=== PATIENT | male | born 2000 | race Caucasian/White ===

== ENCOUNTER 2019-07-21 15:08 | Emergency (ER) | payer MEDICAID ==
--- NOTE | 2019-07-21 15:27 | ED Physician Documentation ---
PD HPI HEENT - Stated complaint Stated Complaint: TONGUE NUMBNESS/PX,SORE THROAT - Chief complaint Chief Complaint: Heent - History obtained from History obtained from: Patient - History of Present Illness Timing - onset: Yesterday (Onset yesterday of sore throat with some sores around the gum as well and difficulty swallowing because of discomfort. He denies any feeling of blockage of the area. He has not had any trouble breathing. He denies any rash or sores or itchiness on the skin. He has not had any fever or chills. He does have some feeling of adenopathy. No cough. He has had some runny nose. He denies any unusual foods or new medications.) Timing - duration: Days (1-2) Timing - details: Abrupt onset Location: Throat, Mouth Worsens: Swalllowing Associated symptoms: Congestion, Swollen nodes (left neck). No: Fever, Facial swelling, Headache, Cough Similar symptoms before: Has not had sx before Recently seen: Not recently seen Review of Systems Constitutional: denies: Fever, Chills Nose: denies: Rhinorrhea / runny nose, Congestion Throat: reports: Oral lesions / sores, Sore throat Respiratory: denies: Cough PD PAST MEDICAL HISTORY - Past Medical History Cardiovascular: None Respiratory: None Neuro: None Endocrine/Autoimmune: None - Present Medications Home Medications: Ambulatory Orders Medication Instructions Recorded Confirmed Hydrocodone/Acetaminophen [[place] 1 each PO Q6H PRN #15 tablet 07/21/19 5-325 Tablet] Lidocaine Viscous 2% [Xylocaine 5 ml PO Q4H PRN #100 ml 07/21/19 Viscous 2%] dexAMETHasone [Decadron] 4 mg PO DAILY #5 tablet 07/21/19 - Allergies Allergies/Adverse Reactions: Allergies Allergy/AdvReac Type Severity Reaction Status Date / Time No Known Drug Allergies Allergy Verified 07/21/19 15:17 PD ED PE NORMAL - Vitals Vital signs reviewed: Yes - General General: Alert and oriented X 3, No acute distress, Well developed/nourished - HEENT HEENT: Ears normal, Moist mucous membranes. No: Pharynx benign (discrete small ulcerative lesions on gum, inner lip, soft palatte and back of throat. ) - Neck Neck: Supple, no meningeal sign, No adenopathy - Cardiac Cardiac: RRR, No murmur - Respiratory Respiratory: Clear bilaterally - Abdomen Abdomen: Soft, Non tender - Derm Derm: Normal color, Warm and dry, Other (some small red spots with tenderness in palms. No rash on trunk. ) - Neuro Neuro: Alert and oriented X 3, No motor deficit, Normal speech Results - Vitals Vitals: Vital Signs - 24 hr 07/21/19 07/21/19 15:13 16:26 Temperature 36.2 C L 36.4 C L Heart Rate 86 80 Respiratory 18 17 Rate Blood Pressure 137/78 H 134/84 H O2 Saturation 99 100 Oxygen O2 Source Room air - Labs Labs: Laboratory Tests 07/21/19 15:41 Group A Strep Rapid Negative PD MEDICAL DECISION MAKING - ED course Complexity details: considered differential (Does not seem strep. More likely viral stomatitis, and with some palm red spots, most likely hand/foot/mouth dz. ), d/w patient Departure - Departure Disposition: 01 Home, Self Care Clinical Impression: Stomatitis, viral, Hand, foot and mouth disease Condition: Stable Record reviewed to determine appropriate education?: Yes Instructions: ED Hand Foot Mouth Disease Ch Prescriptions: dexAMETHasone [Decadron] 4 mg PO DAILY #5 tablet Hydrocodone/Acetaminophen [[place] 5-325 Tablet] 1 each PO Q6H PRN #15 tablet PRN Reason: Pain Lidocaine Viscous 2% [Xylocaine Viscous 2%] 5 ml PO Q4H PRN #100 ml PRN Reason: Pain Comments: This looks likely to be a viral infection with sores in the mouth. Your strep test is negative. Use Tylenol or ibuprofen if needed for fevers and mild pains. Add hydrocodone if needed for worse pain. You can also use lidocaine mixed with some Benadryl liquid to help with some of the mouth sores and pain. Decadron steroid daily for 5 days to decrease inflammation. Forms: Activity restrictions Discharge Date/Time: 07/21/19 16:38
[2019-07-21] MEDS ORDERED: DEXAMETHASONE 10 MG/ML VIAL PO STA (15:41)
[2019-07-21] MEDS ORDERED: HYDROcod/ACETAM 5/325 MG TABLET PO STA (15:41)
[2019-07-21] MEDS ORDERED: LIDOCAINE VISCOUS 2% 15 ML UDC MM STA (15:41)
[2019-07-21] MEDS ORDERED: diphenhydrAMINE ELIXIR 25 MG/10 ML UDC PO STA (15:41)
[2019-07-21] MEDS ORDERED: CHERRY SYRUP 10 ML UDC PO ONE (15:41)
[2019-07-21 15:54] LABS: RAPID STREP SCREEN Negative (Negative)
[2019-07-21 16:27] VITALS: BP 134/84
== END 2019-07-21 16:38 | disposition home or self-care (01) ==
LOC: ED 15:08
DX: B08.4 Enteroviral vesicular stomatitis with exanthem (principal)
CPT/HCPCS: 87070; 87430; 99283; 99284; A9270

== ENCOUNTER 2022-04-28 18:35 | Emergency (ER) | payer MEDICAID ==
--- NOTE | 2022-04-28 20:03 | XRAY Report ---
PROCEDURE: Chest 1 View X-Ray INDICATIONS: ITS.REASON: CP TECHNIQUE: One view of the chest was acquired. COMPARISON: None FINDINGS: Surgical changes and devices: None. Lungs and pleura: No pleural effusions or pneumothorax. Lungs are clear. Mediastinum: Mediastinal contours appear normal. Heart size is normal. Bones and chest wall: No suspicious bony lesions. Overlying soft tissues appear unremarkable. IMPRESSION: Normal for age, source of chest pain is not seen. Reviewed by: Dionicio Tang MD on 04/28/2022 8:01 PM PDT Approved by: Dionicio Tang MD on 04/28/2022 8:01 PM PDT Station ID: [id number]
--- NOTE | 2022-04-28 20:34 | ED Physician Documentation ---
PD HPI CHEST PAIN - Stated complaint Stated Complaint: CHEST PX - Chief complaint Chief Complaint: Cardiac - History obtained from History obtained from: Patient - Additional information Additional information: Patient is a 21-year-old male with no significant past medical history presenting for evaluation of intermittent episodes of chest pain that of been ongoing for the last year. He states that they are very random and he can go days to weeks without an episode but then will have 1. Today he had 3 episodes that each lasted a minute or 2.It is over the left side of his chest. Does not radiate elsewhere. Nothing makes it better or worse when he has the episodes. Reports feeling short of breath when he has the pain but then his symptoms quickly improved without any intervention. He denies any known triggers such as activity. Denies history of hypertension, diabetes or dyslipidemia. No family history of early coronary artery disease. Denies drug use. Of note, patient is here in the emergency department with 3 other family members who are being evaluated for URI symptoms. Patient denies recent illness with fever, cough, congestion. Review of Systems Constitutional: denies: Fever Nose: denies: Congestion Cardiac: reports: Chest pain / pressure Respiratory: denies: Dyspnea, Cough GI: denies: Abdominal Pain, Vomiting : denies: Dysuria Skin: denies: Rash Musculoskeletal: denies: Back pain, Extremity swelling Neurologic: denies: Headache PD PAST MEDICAL HISTORY - Past Medical History Past Medical History: No Cardiovascular: None Respiratory: None Neuro: None Endocrine/Autoimmune: None - Past Surgical History Past Surgical History: No - Present Medications Home Medications: Ambulatory Orders Medication Instructions Recorded Confirmed Hydrocodone/Acetaminophen [[place] 1 each PO Q6H PRN #15 tablet 07/21/19 5-325 Tablet] Lidocaine Viscous 2% [Xylocaine 5 ml PO Q4H PRN #100 ml 07/21/19 Viscous 2%] dexAMETHasone [Decadron] 4 mg PO DAILY #5 tablet 07/21/19 - Allergies Allergies/Adverse Reactions: Allergies Allergy/AdvReac Type Severity Reaction Status Date / Time No Known Drug Allergies Allergy Verified 04/28/22 18:52 - Social History Does the pt smoke?: No Smoking Status: Never smoker Does the pt drink ETOH?: Yes Does the pt have substance abuse?: No - Immunizations Immunizations: TDAP >10years/unknown PD ED PE NORMAL - General General: Alert and oriented X 3, No acute distress, Well developed/nourished - HEENT HEENT: Atraumatic, Moist mucous membranes - Neck Neck: Supple, no meningeal sign - Cardiac Cardiac: RRR, No murmur, Strong equal pulses, Other (Left-sided chest wall tenderness with no bruising, deformities, crepitus) - Respiratory Respiratory: No respiratory distress, Clear bilaterally - Abdomen Abdomen: Normal bowel sounds, Soft, Non tender, Non distended - Derm Derm: Warm and dry - Extremities Extremities: No edema - Neuro Neuro: Normal speech Results - Vitals Vitals: Vital Signs - 24 hr 04/28/22 04/28/22 18:46 20:53 Temperature 36 C L Heart Rate 86 93 Respiratory 16 18 Rate Blood Pressure 148/83 H 132/78 H O2 Saturation 99 98 Oxygen O2 Source Room air - EKG (time done) 1851 Rate: Rate (enter#) (86) Rhythm: NSR Intervals: No: Prolonged QT Ischemia: No: ST elevation c/w ischemia Compare to prior EKG: Old EKG unavailable PD MEDICAL DECISION MAKING - ED course Complexity details: reviewed results, re-evaluated patient, d/w patient ED course: Patient is a 21-year-old male presenting for evaluation of chest pain that has been intermittent for the last year with 3 episodes today. Episodes are 1 to 2 minutes without any radiation. No known exacerbating or alleviating factors. Patient has no risk factors for ACS. PERC negative. EKG is a normal sinus rhythm and chest x-ray is unremarkable. Patient has been symptom-free here.His symptoms seem very atypical for condition such as ACS or dissection. No recent URI symptoms to suggest myocarditis or pericarditis. Patient counseled on need for close follow-up with his primary care doctor as well as concerning symptoms to return for. Departure - Departure Disposition: 01 Home, Self Care Clinical Impression: Chest pain Condition: Stable Instructions: ED Chest Pain Atypical Unkn Cause Comments: You were evaluated For chest pain. At this time it is unclear as to what is causing your pain. Your EKG shows a normal rhythm. Your chest x-ray is also clear. I would encourage close follow-up with your primary care doctor. If your symptoms worsen in any way or become more intense then please reconsider coming back to the emergency department for another evaluation. Discharge Date/Time: 04/28/22 20:55
[2022-04-28 20:54] VITALS: BP 132/78
== END 2022-04-28 20:55 | disposition home or self-care (01) ==
LOC: ED 18:35
DX: R07.9 Chest pain, unspecified (principal)
CPT/HCPCS: 93005; 99282; 99283

== ENCOUNTER 2022-12-21 15:09 | Emergency (ER) | payer MEDICAID ==
[2022-12-21 15:20] VITALS: BP 133/65
[2022-12-21] MEDS ORDERED: PENICILLIN VK 250 MG TABLET PO STA (15:27)
[2022-12-21] MEDS ORDERED: HYDROcod/ACETAM 5/325 MG TABLET PO STA (15:27)
--- NOTE | 2022-12-21 15:30 | ED Physician Documentation ---
History of Present Illness - Stated complaint Stated Complaint: MOUTH PX - Chief complaint Chief Complaint: Heent - History obtained from History obtained from: Patient - History of Present Illness Timing: How many days ago (several days) Pain level max: 8 Pain level now: 8 - Additonal information Additional information: Patient is a 22-year-old male who presents to the emergency department with several days of bilateral upper "wisdom tooth" pain. He states that they feel like they are cracked, worse with eating and drinking. Causing headaches. No fevers. He tried calling [facility] but they had no appointments. Has been taking Motrin without relief. Review of Systems Constitutional: denies: Fever, Chills GI: denies: Nausea, Vomiting, Diarrhea Skin: denies: Rash Musculoskeletal: denies: Neck pain, Back pain Neurologic: denies: Headache PD PAST MEDICAL HISTORY - Past Medical History Cardiovascular: None Respiratory: None Neuro: None Endocrine/Autoimmune: None - Past Surgical History Past Surgical History: No - Present Medications Home Medications: Ambulatory Orders Medication Instructions Recorded Confirmed Hydrocodone/Acetaminophen [[place] 1 each PO Q6H PRN #15 tablet 07/21/19 5-325 Tablet] Lidocaine Viscous 2% [Xylocaine 5 ml PO Q4H PRN #100 ml 07/21/19 Viscous 2%] dexAMETHasone [Decadron] 4 mg PO DAILY #5 tablet 07/21/19 HYDROcod/ACETAM 5/325 [[place] 5/325] 1 - 2 ea PO Q6H PRN #14 tablet 12/21/22 Penicillin V Potassium 500 mg PO Q6HR #40 tablet 12/21/22 - Allergies Allergies/Adverse Reactions: Allergies Allergy/AdvReac Type Severity Reaction Status Date / Time No Known Drug Allergies Allergy Verified 12/21/22 15:19 - Social History Does the pt smoke?: No Smoking Status: Never smoker Does the pt drink ETOH?: Yes Does the pt have substance abuse?: No - Immunizations Immunizations: TDAP >10years/unknown PD ED PE NORMAL - Vitals Vital signs reviewed: Yes - General General: Alert and oriented X 3, No acute distress - HEENT HEENT: PERRL, Moist mucous membranes, Other (B upper wisdom teeth appear to be at an angle and cutting into the gumline. no abscess, no drainage. no facial cellulitis. normal phonation, no trismus) - Neck Neck: Supple, no meningeal sign - Cardiac Cardiac: RRR, No murmur, Strong equal pulses - Respiratory Respiratory: No respiratory distress, Clear bilaterally - Derm Derm: Warm and dry - Neuro Neuro: Alert and oriented X 3 - Psych Psych: Normal mood, Normal affect Results - Vitals Vitals: Vital Signs - 24 hr 12/21/22 15:17 Temperature 36.0 C L Heart Rate 76 Respiratory 16 Rate Blood Pressure 133/65 H O2 Saturation 99 Oxygen O2 Source Room air PD Medical Decision Making - ED course Complexity details: reviewed results, re-evaluated patient, considered differential, d/w patient ED course: Patient with dental pain, appears to be secondary to wisdom teeth that are growing in crooked and pushing on the other teeth. We will prescribe antibiotics as there do appear to be cracks in the wisdom teeth and pain medication. Patient informed that he will need to follow-up closely with an oral surgeon to talk about removal of the wisdom teeth. Information will be given. Patient is well-appearing, nontoxic. Afebrile. No abscess. Patient counseled regarding signs and symptoms for which I believe and urgent re- evaluation would be necessary. Patient with good understanding of and agreement to plan and is comfortable going home at this time This document was made in part using voice recognition software. While efforts are made to proofread this document, sound alike and grammatical errors may occur. Departure - Departure Disposition: 01 Home, Self Care Clinical Impression: Pain, dental Condition: Good Instructions: ED Tooth Pain Follow-Up: Wesly Malagon DDS [Provider Admit Priv/Credential] - Joe Haney DMD [Physician No Access] - Jim Polo DMD [Physician No Access] - Prescriptions: Penicillin V Potassium 500 mg PO Q6HR #40 tablet HYDROcod/ACETAM 5/325 [[place] 5/325] 1 - 2 ea PO Q6H PRN #14 tablet PRN Reason: Pain Comments: [facility] [place]. Please take all antibiotics until gone. Please follow-up with an oral surgeon for further care and to discuss removal of your wisdom teeth. I have listed several oral surgeons in this paperwork. I am prescribing a short course of narcotic pain medication for you. These are potentially dangerous and addictive medications that should be used carefully. These medications may constipate you. Take an xjzl-ear-zauxnje stool softener (docusate) twice daily with plenty of water while taking these medications. If you go 24 hours without a bowel movement, take eaiq-wpy-orkcmlu miralax, per package instructions. Do not drink or drive while taking these medications. If you received narcotic or sedating medications while in the emergency department, do not drive for 24 hours. Store this medication in a safe, secure place and out of reach of children. It is a violation of federal law to give or sell this medication to another person or to use in a manner other than prescribed. The ED will not refill narcotic prescriptions, including prescriptions lost or stolen. To dispose of unwanted medications: 1. [facility] at [address] in [place] has a medication drop box. They accept prescription medications (in pill form) Saturday through Saturday 9:00 a.m. to 5:00 p.m. 2. The [facility] [employer] Department accepts prescription medications (in pill form only) for disposal year round. Call for more information. 3. Contact the [facility] for the next [facility] sponsored prescription drug collection event. , [phone], or [phone];
== END 2022-12-21 15:48 | disposition home or self-care (01) ==
LOC: ED 15:09
DX: K08.89 Other specified disorders of teeth and supporting structures (principal)
CPT/HCPCS: 99282; 99283; A9270

== ENCOUNTER 2023-03-27 16:07 | Emergency (ER) | payer OTHER, MEDICAID ==
--- NOTE | 2023-03-27 17:00 | XRAY Report ---
PROCEDURE: Wrist 4 View LT INDICATIONS: Trauma TECHNIQUE: 3 views of the wrist were acquired. COMPARISON: None. FINDINGS: Bones: No fractures or dislocations. No suspicious bony lesions. Soft tissues: No suspicious soft tissue calcifications or masses. No radiopaque foreign body. IMPRESSION: No acute bony abnormality. If there is anatomic snuff box tenderness, consider wrist immobilization a nd repeat radiographs in 10-14 days or cross-sectional imaging now. If pain persists with conservativ e management, consider repeat radiographs in 10-14 days or cross-sectional imaging. Reviewed by: Carlos Ruiz on 03/27/2023 4:59 PM PDT Approved by: Carlos Ruiz on 03/27/2023 4:59 PM PDT Station ID: [id number]
[2023-03-27] MEDS ORDERED: KETOROLAC 30 MG/ML VIAL IM STA (17:49)
--- NOTE | 2023-03-27 18:00 | ED Physician Documentation ---
History of Present Illness - Stated complaint Stated Complaint: LT WRIST INJ - Chief complaint Chief Complaint: Trauma Ext - Additonal information Additional information: 22-year-old male here for acute left wrist pain sustained when a large box fell on his wrist at work. He ended up having a similar incident occur yesterday. Now he has pain over the carpal bones snuffbox region dorsal aspect. Patient is right-hand dominant. No open sores or lesions. This is a work-related injury. Review of Systems Musculoskeletal: reports: Joint pain PD PAST MEDICAL HISTORY - Past Medical History Past Medical History: No Cardiovascular: None Respiratory: None Neuro: None Endocrine/Autoimmune: None - Past Surgical History Past Surgical History: No - Present Medications Home Medications: Ambulatory Orders Medication Instructions Recorded Confirmed HYDROcod/ACETAM 5/325 [[place] 5/325] 1 tablet PO BID PRN #10 tablet 03/27/23 - Allergies Allergies/Adverse Reactions: Allergies Allergy/AdvReac Type Severity Reaction Status Date / Time No Known Drug Allergies Allergy Verified 03/27/23 16:36 - Social History Does the pt smoke?: No Smoking Status: Never smoker Does the pt drink ETOH?: Yes Does the pt have substance abuse?: No - Immunizations Immunizations: TDAP >10years/unknown PD ED PE EXPANDED - Extremities Extremities: Left wrist (Pain over the carpal bones specifically over the anatomic snuffbox. Neurovascularly intact otherwise. No swelling or deformity. 2+ radial pulse.) Results - Vitals Vitals: Vital Signs - 24 hr 03/27/23 16:36 Temperature 36.7 C Heart Rate 100 Respiratory 16 Rate Blood Pressure 157/81 H O2 Saturation 97 Oxygen O2 Source Room air - Rads (name of study) left wrist xr Relevant Findings:: Final report received (No acute bony abnormality.) PD Medical Decision Making - ED course Complexity details: reviewed results, d/w patient ED course: 22-year-old male here for evaluation of acute left wrist injury sustained when a large box fell on the wrist 2 days in a row while at work. He does work at [employer]. There is some mild erythema but no ecchymosis swelling or deformity of the wrist. An x-ray is interpreted by the radiologist showed no acute fracture. However on exam he had significant tenderness over the scaphoid/snuffbox region. Given this and the difficulty of finding occult fracture initially with x-ray imaging he was placed in a fiberglass thumb spica splint. He is to follow closely with his [employer] preferred provider. He is recommended Tylenol and ibuprofen for discomfort. For more severe pain limited prescription of [place] was sent to the [facility] in [place]. Advised that he needs repeat imaging in 1 week's time. If pain not markedly improved at that time he may benefit from referral to orthopedics. I am prescribing a short course of short-acting opioid pain medication for this patient. 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 I have discussed that the opioids are for short term therapy only, and will not be refilled from the ED. Departure - Departure Disposition: 01 Home, Self Care Clinical Impression: Contusion of left wrist, initial encounter, Work related injury Condition: Stable Record reviewed to determine appropriate education?: Yes Instructions: ED Splint Care Fiberglass Prescriptions: HYDROcod/ACETAM 5/325 [[place] 5/325] 1 tablet PO BID PRN #10 tablet PRN Reason: Pain Comments: The x-ray of your wrist does not show an obvious fracture or broken bone. H owever you have enough pain over the region of the hand called the snuffbox or scaphoid bone that it warrants being immobilized and splinted. It is important that you follow-up with your [employer] preferred provider within the next week. Your hand should be reimaged at that time. If you continue to have significant tenderness you may need to be referred to orthopedics for follow-up. In general you can take Tylenol 500 mg 3 times a day or alternate with ibuprofen 600 mg taken with food 3 times a day for discomfort. For more severe pain I have sent a limited amount of hydrocodone or [place] to the [facility] in [place]. You are cleared to return to work as long as they can limit any activity that would require the use of the left hand. 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 Your splint cannot get wet. If it gets wet return to the ER to have it replaced. I recommend showering with a bag over your hand. I am prescribing a short course of narcotic pain medication for you. These are potentially dangerous and addictive medications that should be used carefully. These medications may constipate you. Take an fumi-zfc-xrjvqxr stool softener (docusate) twice daily with plenty of water while taking these medications. If you go 24 hours without a bowel movement, take jjyl-fxe-icrssov miralax, per package instructions. Do not drink or drive while taking these medications. If you received narcotic or sedating medications while in the emergency department, do not drive for 24 hours. Store this medication in a safe, secure place and out of reach of children. It is a violation of federal law to give or sell this medication to another person or to use in a manner other than prescribed. The ED will not refill narcotic prescriptions, including prescriptions lost or stolen. To dispose of unwanted medications: 1. [facility] [address] in [place] has a medication drop box. They accept prescription medications (in pill form) Saturday through Saturday 9:00 a.m. to 5:00 p.m. 2. The [facility] Department accepts prescription medications (in pill form only) for disposal year round. Call for more information. 3. Contact the [facility] for the next [facility] sponsored prescription drug collection event. , [phone], or [phone]; Note that many narcotic pain relievers also contain Tylenol/acetaminophen. Please ensure that your total dose of acetaminophen from all sources does not exceed 3 g (3000 mg) per day.
[2023-03-27 18:26] VITALS: BP 153/85; O2SAT 99
== END 2023-03-27 18:22 | disposition home or self-care (01) ==
LOC: ED 16:07
DX: S60.212A Contusion of left wrist, initial encounter (principal); W20.8XXA Other cause of strike by thrown, projected or falling object, initial encounter; Y99.0 Civilian activity done for income or pay
CPT/HCPCS: 96372; 99283

== ENCOUNTER 2023-04-26 09:30 | Emergency (ER) | payer MEDICAID, OTHER ==
[2023-04-26 10:09] VITALS: BP 140/88; O2SAT 99
--- NOTE | 2023-04-26 10:17 | ED Physician Documentation ---
PD HPI WOUND RECHECK - Stated complaint Stated Complaint: POST LT ARM SPRAIN CHECK - Chief complaint Chief Complaint: General - Histroy obtained from History obtained from: Patient - History of Present Illness Location: Left Uppper Extremity (wrist sprain about 3 weeks ago and was given splint and directed light/imited use for couple weeks. He states was diminished work and wrist feeling normal. His work wants note saying he can resume normal activity.) Timing - onset: How many weeks ago (3) Recently seen: Emergency Dept (seen 04/04/23 for wrist sprain eval. He states wrist use is feeling back to normal at this time wand wishes to resume usual work.) Review of Systems Skin: denies: Rash, Lesions Neurologic: denies: Focal weakness, Numbness PD PAST MEDICAL HISTORY - Past Medical History Cardiovascular: None Respiratory: None Neuro: None Endocrine/Autoimmune: None - Past Surgical History Past Surgical History: No - Present Medications Home Medications: Ambulatory Orders Medication Instructions Recorded Confirmed No Known Home Medications 04/26/23 04/26/23 - Allergies Allergies/Adverse Reactions: Allergies Allergy/AdvReac Type Severity Reaction Status Date / Time No Known Drug Allergies Allergy Verified 04/04/23 17:01 - Social History Does the pt smoke?: No Smoking Status: Never smoker Does the pt drink ETOH?: Yes Does the pt have substance abuse?: No - Immunizations Immunizations: TDAP >10years/unknown PD ED PE NORMAL - Vitals Vital signs reviewed: Yes - General General: Alert and oriented X 3, No acute distress, Well developed/nourished - Derm Derm: Normal color, Warm and dry - Extremities Extremities: Other (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 ) - Neuro Neuro: No motor deficit, No sensory deficit Results - Vitals Vitals: Vital Signs - 24 hr 04/26/23 10:01 Temperature 36.5 C Heart Rate 98 Respiratory 16 Rate Blood Pressure 140/88 H O2 Saturation 99 Oxygen O2 Source Room air PD Medical Decision Making - ED course Complexity details: reviewed old records (prior ED note with the sprain diagnosis. ), considered differential (he feels wrist is back to normal use and wishes work note to resume normal activity. ), d/w patient Departure - Departure Disposition: 01 Home, Self Care Clinical Impression: Follow-up exam after treatment, Left wrist sprain Condition: Stable Record reviewed to determine appropriate education?: Yes Comments: It is okay to resume normal work. If you do find some pains with use, you can do some ibuprofen or naproxen twice daily. Use the wrist splint at times if needed to protect the wrist if mild pains. Follow-up if needed. Forms: PCP List, Activity restrictions Discharge Date/Time: 04/26/23 10:42
== END 2023-04-26 10:42 | disposition home or self-care (01) ==
LOC: ED 09:30
DX: S63.502D Unspecified sprain of left wrist, subsequent encounter (principal); X58.XXXD Exposure to other specified factors, subsequent encounter
CPT/HCPCS: 99281; 99282

== ENCOUNTER 2024-02-15 14:27 | Emergency (ER) | payer OTHER, MEDICAID ==
[2024-02-15 15:08] LABS: BASOPHILS % (AUTO) 0.3 %; EOSINOPHILS # (AUTO) 0.2 10^3/uL (0.0-0.7); EOSINOPHILS % (AUTO) 1.7 %; HCT - HEMATOCRIT 42.1 % (42.0-52.0); LYMPHOCYTES # (AUTO) 2.9 10^3/uL (1.5-3.5); LYMPHOCYTES % (AUTO) 32.5 %; MEAN CORPUSCULAR HEMOGLOBIN 27.7 pg (27.0-31.0); MEAN CORPUSCULAR HGB CONC 33.3 g/dL (32.0-36.0); MEAN CORPUSCULAR VOLUME 83.4 fL (80.0-94.0); MEAN PLATELET VOLUME 10.1 fL (7.4-11.4); MONOCYTES # (AUTO) 0.8 10^3/uL (0.0-1.0); MONOCYTES % (AUTO) 8.5 %; NEUTROPHILS % (AUTO) 56.8 %; PLT - PLATELET COUNT 217 10^3/uL (130-450); RED BLOOD COUNT 5.05 10^6/uL (4.70-6.10); RED CELL DISTRIBUTION WIDTH 12.5 % (12.0-15.0); WHITE BLOOD COUNT 8.9 x10^3/uL (4.8-10.8)
[2024-02-15 15:23] LABS: ALBUMIN 4.7 g/dL (3.2-5.5); ALBUMIN/GLOBULIN RATIO 2.1 (1.0-2.2); ALKALINE PHOSPHATASE 55 IU/L (42-121); ALT ALANINE AMINOTRANSFERASE 26 IU/L (10-60); AST ASPARTATE AMINOTRANSFERASE 19 IU/L (10-42); BILIRUBIN,TOTAL 0.4 mg/dL (0.2-1.0); BUN - BLOOD UREA NITROGEN 18 mg/dL (6-20); CARBON DIOXIDE - CO2 28 mmol/L (21-32); CHLORIDE 104 mmol/L (101-111); CREATININE 0.8 mg/dL (0.6-1.3); GFR - MDRD 119 (>89); GLUCOSE 95 mg/dL (74-104); LIPASE 42 U/L (11-82); POTASSIUM 4.1 mmol/L (3.5-4.5); SODIUM 137 mmol/L (135-145); TOTAL PROTEIN 6.9 g/dL (6.4-8.9)
[2024-02-15 15:27] LABS: TROPONIN I HIGH SENSITIVITY < 2.3 ng/L (2.3-19.7)
--- NOTE | 2024-02-15 15:27 | ED Physician Documentation ---
PD HPI CHEST PAIN - Stated complaint Stated Complaint: CHEST PX,SOA - Chief complaint Chief Complaint: Cardiac - History obtained from History obtained from: Patient - Additional information Additional information: He has a history of asthma in childhood heart murmur but no other heart issues and does not run in the family. He had 3 days of fairly constant left-sided chest pain that is worse with motion of the left arm and sometimes with deep breathing. He does not feel like he is wheezing. No pedal edema or calf pain. He also has an ancillary complaint complains of 8 years of ongoing knee pain that with popping and clicking. PD PAST MEDICAL HISTORY - Past Medical History Cardiovascular: None Respiratory: None Neuro: None Endocrine/Autoimmune: None - Past Surgical History Past Surgical History: No - Present Medications Home Medications: Ambulatory Orders Medication Instructions Recorded Confirmed No Known Home Medications 04/26/23 02/15/24 - Allergies Allergies/Adverse Reactions: Allergies Allergy/AdvReac Type Severity Reaction Status Date / Time No Known Drug Allergies Allergy Verified 02/15/24 14:48 - Social History Does the pt smoke?: No Smoking Status: Never smoker Does the pt drink ETOH?: Yes Does the pt have substance abuse?: No - Immunizations Immunizations: TDAP >10years/unknown PD ED PE NORMAL - Vitals Vital signs reviewed: Yes - General General: Alert and oriented X 3, No acute distress - Neck Neck: Supple, no meningeal sign, No bony TTP - Cardiac Cardiac: RRR, No murmur - Respiratory Respiratory: No respiratory distress, Clear bilaterally, Other (Chest pain is reproducible with palpation of the upper left chest wall) - Abdomen Abdomen: Non tender - Extremities Extremities: No edema, No calf tenderness / cord, Other (Left knee is visibly normal without tenderness.) Results - Vitals Vitals: Vital Signs - 24 hr 02/15/24 02/15/24 14:43 15:41 Temperature 36.3 C L 36.5 C Heart Rate 87 88 Respiratory 18 18 Rate Blood Pressure 133/74 H 128/72 O2 Saturation 99 100 Oxygen O2 Source Room air - EKG (time done) 1451 EKG releavant findings:: EKG personally interpreted by author of this note. Relevant findings are: Rate: Rate (enter#) (69) Rhythm: NSR [place]: Normal Intervals: Normal [place] QRS: Normal Ischemia: Normal ST segments - Labs Labs: Laboratory Tests 02/15/24 02/15/24 15:01 15:01 WBC 8.9 RBC 5.05 Hgb 14.0 Hct 42.1 MCV 83.4 MCH 27.7 MCHC 33.3 RDW 12.5 Plt Count 217 MPV 10.1 Neut # (Auto) 5.0 Lymph # (Auto) 2.9 [place] # (Auto) 0.8 Eos # (Auto) 0.2 Baso # (Auto) 0.0 Absolute Nucleated RBC 0.00 Nucleated RBC % 0.0 Sodium 137 Potassium 4.1 Chloride 104 Carbon Dioxide 28 Anion Gap 5.0 L BUN 18 Creatinine 0.8 Estimated GFR (MDRD) 119 Glucose 95 Calcium 10.0 Total Bilirubin 0.4 AST 19 ALT 26 Alkaline Phosphatase 55 Troponin I High Sens < 2.3 L Total Protein 6.9 Albumin 4.7 Globulin 2.2 Albumin/Globulin Ratio 2.1 Lipase 42 - Rads (name of study) Single view chest x-ray and left knee x-ray were negative Relevant Findings:: Final report received, EMP independent interpretation of test PD Medical Decision Making - ED course Complexity details: reviewed results (CBC, CMP, troponin normal/negative) ED course: Heart score 0, PERC negative I considered aortic dissection in this patient. The patient has a much more likely alternative diagnosis. The patient has equal radial and pedal pulses and has no neurologic symptoms. The chest pain is almost clearly musculoskeletal on exam. He also was worried about his knee but that is a chronic issue. Departure - Departure Disposition: 01 Home, Self Care Clinical Impression: Chest wall pain, Chronic pain of left knee Condition: Good Record reviewed to determine appropriate education?: Yes Instructions: ED Strain Chest Wall Comments: The x-rays of your chest and knee were normal. There is no evidence of active heart issue and it seems like the pain is from the muscles of your chest. Ibuprofen as needed per package instructions for aches and pains and call your doctor to arrange a follow-up appointment, make the next available appointment. In the interim, return anytime if worse or if new symptoms develop. Forms: PCP List Discharge Date/Time: 02/15/24 15:45
--- NOTE | 2024-02-15 15:30 | XRAY Report ---
PROCEDURE: Knee 4+V LT INDICATIONS: Trauma TECHNIQUE: 4 views of the knee(s) were acquired. COMPARISON: None. FINDINGS: Bones: No fractures or dislocations. No suspicious bony lesions. Soft tissues: No knee joint effusion. No suspicious soft tissue calcifications or masses. IMPRESSION: No acute plain film abnormality is seen. If it would be helpful for clinical management decision making, please consider a dedicated, schedule d knee MRI for further evaluation (assuming that there is no contraindication). Reviewed by: Los Crowder MD on 02/15/2024 2:29 PM ITA Approved by: Los Crowder MD on 02/15/2024 2:29 PM ITA Station ID: [id number]
--- NOTE | 2024-02-15 15:30 | XRAY Report ---
PROCEDURE: Chest 1V INDICATIONS: Chest pain TECHNIQUE: One view of the chest was acquired. COMPARISON: 04/28/2022 FINDINGS: Surgical changes and devices: None. Lungs and pleura: An incomplete inspiratory result is noted, with low lung volumes and crowding of t he vascular markings. No focal infiltrates are seen. No large pneumothorax or large pleural effusion can be seen. Mediastinum: Mediastinal contours appear normal. Heart size is normal. Bones and chest wall: No suspicious bony lesions. Overlying soft tissues appear unremarkable. IMPRESSION: Limited portable chest examination, without an acute abnormality identified. Reviewed by: Los Crowder MD on 02/15/2024 2:28 PM [email or web address] Approved by: Los Crowder MD on 02/15/2024 2:28 PM ITA Station ID: [id number]
[2024-02-15 15:58] VITALS: BP 128/72; O2SAT 100
== END 2024-02-15 15:45 | disposition home or self-care (01) ==
LOC: ED 14:27
DX: R07.89 Other chest pain (principal); G89.29 Other chronic pain; M25.562 Pain in left knee
CPT/HCPCS: 36415; 80053; 83690; 84484; 85025; 93005; 99283; 99284

== ENCOUNTER 2024-03-13 10:19 | Outpatient (CLI) | payer OTHER, MEDICAID ==
[2024-03-13 18:33] LABS: ALBUMIN 4.5 g/dL (3.2-5.5); ALBUMIN/GLOBULIN RATIO 1.6 (1.0-2.2); ALKALINE PHOSPHATASE 52 IU/L (42-121); ALT ALANINE AMINOTRANSFERASE 26 IU/L (10-60); AST ASPARTATE AMINOTRANSFERASE 17 IU/L (10-42); BILIRUBIN,TOTAL 0.4 mg/dL (0.2-1.0); BUN - BLOOD UREA NITROGEN 14 mg/dL (6-20); CALCIUM 9.5 mg/dL (8.5-10.3); CARBON DIOXIDE - CO2 27 mmol/L (21-32); CHLORIDE 105 mmol/L (101-111); CHOL/HDL RATIO 3.1 (<5.0); CHOLESTEROL 107 mg/dL; CREATININE 0.7 mg/dL (0.6-1.3); GFR - MDRD 139 (>89); GLUCOSE 94 mg/dL (74-104); HDL CHOLESTEROL 35 mg/dL; LDL CHOLESTEROL,CALCULATED 47 mg/dL; LDL/HDL RATIO 1.3 (<3.6); POTASSIUM 4.1 mmol/L (3.5-4.5); SODIUM 137 mmol/L (135-145); TOTAL PROTEIN 7.3 g/dL (6.4-8.9); TRIGLYCERIDES 127 mg/dL; VLDL CHOLESTEROL 25 mg/dL
[2024-03-13 19:01] LABS: THYROID STIMULATING HORMONE 0.98 uIU/mL (0.34-5.60)
[2024-03-13 19:02] LABS: BASOPHILS % (AUTO) 0.7 %; EOSINOPHILS # (AUTO) 0.1 10^3/uL (0.0-0.7); EOSINOPHILS % (AUTO) 1.4 %; HGB - HEMOGLOBIN 13.6 g/dL (14.0-18.0); LYMPHOCYTES # (AUTO) 1.9 10^3/uL (1.5-3.5); LYMPHOCYTES % (AUTO) 32.2 %; MEAN CORPUSCULAR HEMOGLOBIN 27.4 pg (27.0-31.0); MEAN CORPUSCULAR HGB CONC 32.4 g/dL (32.0-36.0); MEAN CORPUSCULAR VOLUME 84.7 fL (80.0-94.0); MEAN PLATELET VOLUME 10.9 fL (7.4-11.4); MONOCYTES # (AUTO) 0.6 10^3/uL (0.0-1.0); MONOCYTES % (AUTO) 10.3 %; NEUTROPHILS # (AUTO) 3.2 10^3/uL (1.5-6.6); NEUTROPHILS % (AUTO) 55.2 %; PLT - PLATELET COUNT 224 10^3/uL (130-450); RED BLOOD COUNT 4.96 10^6/uL (4.70-6.10); RED CELL DISTRIBUTION WIDTH 12.3 % (12.0-15.0); WHITE BLOOD COUNT 5.8 x10^3/uL (4.8-10.8)
[2024-03-13 21:20] LABS: CHLAMYDIA TRACHOMATIS DNA NEGATIVE (NEGATIVE); NEISSERIA GONORRHOEAE DNA NEGATIVE (NEGATIVE); TRICHOMONAS VAGINALIS DNA NEGATIVE (NEGATIVE)
[2024-03-13 21:51] LABS: ESTIMATED AVERAGE GLUCOSE 103 mg/dL (70-100); HEMOGLOBIN A1c% 5.2 % (4.27-6.07)
[2024-03-14 07:10] LABS: HSV 2 IGG TYPE SPEC <0.91 index (0.00-0.90); RPR Non Reactive (Non Reactive)
[2024-03-15 05:09] LABS: HCV AB Non Reactive (Non Reactive)
[2024-03-17 07:08] LABS: HIV SCREEN 4TH GENERATION Non Reactive (Non Reactive)
== END 2024-03-13 10:20 | disposition home or self-care (01) ==
LOC: LAB.N 10:19
DX: Z00.00 Encounter for general adult medical examination without abnormal findings (principal); Z72.51 High risk heterosexual behavior
CPT/HCPCS: 36415; 80053; 80061; 83036; 83721; 84443; 85025; 86592; 86695; 86696; 86803; 87389; 87491; 87591; 87661